=== PATIENT | female | born 1995 | race African-American/Black ===

== ENCOUNTER 2018-10-04 15:42 | Emergency (ER) | payer SELFPAY ==
[2018-10-04] MEDS ORDERED: ONDANSETRON *ODT* 4 MG TABLET SL ONE (15:56)
--- NOTE | 2018-10-04 15:56 | PDOC ---
Rapid Medical Evaluation Medical Evaluation: I have performed a brief in-person evaluation of this patient. The patient presents with a chief complaint of: Nausea since last week; has occasional NBNB small amount of emesis; denies diarrhea; occasionally has some mild abdominal pain, but not having right now Pertinent physical exam findings: In NAD, appears well, abdomen soft, ND I have ordered the following: RAFAELG, Nvaid The patient will proceed to the ED for further evaluation. 10/04/18 15:52
[2018-10-04 15:59] VITALS: BP 123/71; PULSE 88; TEMP 97.8; BMI 23.0
[2018-10-04] MEDS ORDERED: ONDANSETRON *ODT* 4 MG TABLET ONE (16:18)
--- NOTE | 2018-10-04 16:32 | PDOC ---
History of Present Illness - General Chief Complaint: Nausea Stated Complaint: NAUSEA Time Seen by Provider: 10/04/18 16:16 History Source: Care Provider Exam Limitations: Clinical Condition - History of Present Illness Initial Comments: 10/04/18 16:34 Patient with no significant past medical history present with complaint of one- week history of nausea, vomiting and intermittent cramping lower abdominal pain. Patient reported last menstrual period August 05 and usually have regular menstrual periods. Patient reported taking home tests which was negative 3 days ago. Patient denies diarrhea or constipation. Patient denies any abdominal pain now. Timing/Duration: 1 week Past History - Past Medical History Allergies/Adverse Reactions: Allergies Allergy/AdvReac Type Severity Reaction Status Date / Time No Known Allergies Allergy Verified 10/04/18 15:52 Home Medications: Ambulatory Orders Ondansetron [Zofran Odt -] 4 mg SL TID PRN #12 od.tablet 10/04/18 COPD: No - Suicide/Smoking/Psychosocial Hx Smoking History: Never smoked Hx Alcohol Use: No Drug/Substance Use Hx: No Review of Systems - Review of Systems Able to Perform ROS?: Yes Is the patient limited Vietnamese proficient: No Constitutional: No: Fever HEENTM: No: Symptoms Reported Respiratory: No: Symptoms reported Cardiac (ROS): No: Symptoms Reported ABD/GI: Yes: Nausea, Vomiting, Abdominal cramping (intermittent lower abdominal) . No: Diarrhea : No: Burning, Dysuria, Frequency, Urgency Musculoskeletal: No: Back Pain All Other Systems: Reviewed and Negative *Physical Exam - Vital Signs Last Vital Signs Temp Pulse Resp BP Pulse Ox 97.8 F 88 18 123/71 100 10/04/18 15:52 10/04/18 15:52 10/04/18 15:52 10/04/18 15:52 10/04/18 15:52 - Physical Exam Comments: 10/04/18 16:36 GENERAL: Well developed, well nourished. Awake and alert. No acute distress. HEENT: Normocephalic, atraumatic. PERRLA, EOMI. No conjunctival pallor. Sclera are non-icteric. Moist mucous membranes. Oropharynx is clear. NECK: Supple. Full ROM. CARDIOVASCULAR: Regular rate and rhythm. No murmurs, rubs, or gallops. Distal pulses are 2+ and symmetric. PULMONARY: No evidence of respiratory distress. Lungs clear to auscultation bilaterally. No wheezing, rales or rhonchi. ABDOMINAL: Soft. Non-tender. Non-distended. No rebound or guarding. No organomegaly. Normoactive bowel sounds. MUSCULOSKELETAL Normal range of motion at all joints. EXTREMITIES: No cyanosis. No clubbing. No edema. SKIN: Warm and dry. Normal capillary refill. No rashes. No jaundice. NEUROLOGICAL: Alert, awake, appropriate. Gait is normal without ataxia. PSYCHIATRIC: Cooperative. Good eye contact. Appropriate mood General Appearance: Yes: Nourished, Appropriately Dressed. No: Apparent Distress Moderate Sedation - Procedure Monitoring Vital Signs: Procedure Monitoring Vital Signs Temperature 97.8 F 10/04/18 15:52 Pulse Rate 88 10/04/18 15:52 Respiratory Rate 18 10/04/18 15:52 Blood Pressure 123/71 10/04/18 15:52 O2 Sat by Pulse Oximetry (%) 100 10/04/18 15:52 ED Treatment Course - Medications Given in the ED: ED Medications Discontinued Medications Generic Name Dose Route Start Last Admin Trade Name Freq PRN Reason Stop Dose Admin Ondansetron HCl 4 mg 10/04/18 15:56 10/04/18 16:19 Zofran Odt - SL 10/04/18 15:57 4 mg ONCE ONE Administration Medical Decision Making - Medical Decision Making 10/04/18 16:37 Patient with no significant past medical history with LMP August 05 present with complaint of one-week history of nausea and vomiting with intermittent abdominal pains. Clinical exam unremarkable would no abdominal tenderness on exam. Urine test ordered. Patient requested HIV testing and HIV test ordered. Treat based on lab results. 10/04/18 17:22 urine was positive. bedside US done by me shows pos IUP with CRL OF 1.2cm c/w 7.2wks GA. positive FH. Patient wishes not to keep and wants referral to termination clinic for TOP. Patient stable for d/c on zofran prn for N/V and referral to TOP clinic *DC/Admit/Observation/Transfer Diagnosis at time of Disposition: First trimester - Discharge Dispostion Disposition: HOME Condition at time of disposition: Stable Decision to Admit order: No - Prescriptions Prescriptions: Ondansetron [Zofran Odt -] 4 mg SL TID PRN #12 od.tablet PRN Reason: vomiting - Referrals Referrals: [facility], [facility] [Other] - Patient Instructions Printed Discharge Instructions: Managing Symptoms of Additional Instructions: Take medication as prescribed as needed for vomiting. Follow-up referred clinic as discussed for follow-up treatment. - Post Discharge Activity
== END 2018-10-04 18:17 | disposition home or self-care (01) ==
LOC: JERFT 15:42
PROC: BY49ZZZ Ultrasonography of First Trimester, Single Fetus (ICD-10-PCS; principal; 2018-10-04)
DX: O26.891 Other specified pregnancy related conditions, first trimester (principal); R11.2 Nausea with vomiting, unspecified; Z3A.01 Less than 8 weeks gestation of pregnancy
CPT/HCPCS: 36415; 84703; 87389; 99281-25; Q0162